=== PATIENT | male | born 1945 | race Caucasian/White ===

== ENCOUNTER 2024-06-25 13:46 | Emergency (ER) | payer MEDICARE, SELFPAY ==
--- OUTSIDE RECORDS SUMMARY | 2024-06-25 13:48 | XMS_ITS | Data Portability ---
Author Organization [place] [facility], Main Office Address [address] [place] [address] Care Team Providers Care Pressroom Foreman Name Role Phone JENNY CHAN Primary Care Provider JENNY CHAN Referring Provider [phone] Assessment Encounter Date Assessment Date Assessment LastModified by Organization Details LastModified Time 10/13/2022 10/13/2022 Had to leave before seen [email or web address] Not available 11/22/2022 17:32:43 11/19/2022 11/19/2022 Refuses any screenings or immunizations at this time will continue with current therapy follow-up 6 months [email or web address] Not available 11/19/2022 22:18:07 Plan of Treatment Reminders Order Date Submit Date Provider Last Modified By Organization Details Last Modified Time Details Appointments None record ed. Lab None record ed. Referral None record ed. Procedures None record ed. Surgeries None record ed. Imaging None record ed. Medication Orders None record ed. Patient TargetsNo targets recorded. Patient Instructions Encounter Date Encounter Id Patient Instructions Last Modified By Organization Details Last Modified Time 11/19/2022 [id number] dementia rating scale-2* [email or web address] Not available 11/19/2022 22:18:33 depression screening* [email or web address] Not available 11/19/2022 22:18:33 alcohol misuse* [email or web address] Not available 11/19/2022 22:18:32 multi-dimensiona l health assessment questionnaire* Not available 11/19/2022 22:18:33 Personalized [facility] lt Plan and Screening Recommendations Advance Directives - Do you have one? No Advance Directives - Do we have your advance directive on file in your health record? Primary Prevention/Interven tion (prevents or decreases the chance of common diseases from occurring) Smoking Risk: Non Smoker Alcohol Misuse Screening: Negative Weight: Appropriate Physical activity: Appropriate physical activity Nutrition: Good Fall Risk (screened today): Low Vaccines Pneumococcal: Ordered Recommended today Recommended today, but you have declined Influenza: Chronic Disease Risks Stroke: Low Risk I have no recommendations Heart Attack: Low risk I have no recommendations Clogging of the Arteries: Low risk I have no recommendations Diabetes: Low Risk I have no recommendations Secondary Prevention/Interven tion (detects treatable diseases before they may cause symptoms, disability, or ) Prostate Cancer Screening: No digital rectal exam screening necessary Colon Cancer Screening: Colonoscopy In: Ordered Recomme nded Recommended today, but you have declined Date Screening Last Performed: Patient had a positive Cologuard on 05/12/18 but refused follow-up. Eye Disease Screening: Ordered Recommended today Dementia Risk: Low I have no recommendations Depression Screening: Negative Not available 11/19/2022 14:37:43 Reason for Referral None Reported. Results Created Date Observation Date Name Description Value Unit Range Abnormal Flag Note LastModifiedBy Organization Detail LastModifiedTime 11/27/1911/26/2020 CBC/C OMPLE TE BLD COUNT W/DIF F mean RBC HGB concentratio n 32.9 g/dL 31.0-3 6.0 Not Available [facility] (Lab) [address] [place], [address], 11/26/2020 19:56:11 11/27/19 21 11/26/2020 CBC/C OMPLE TE BLD COUNT W/DIF F white blood cells 8.4 x10'3 /uL 4.2-10 .8 Not Available [facility] (Lab) [address] [place], [address], 11/26/2020 19:56:11 11/27/19 21 11/26/2020 CBC/C OMPLE TE BLD COUNT W/DIF F red blood cells 4.63 x10'6 /uL 4.10-5 .80 Not Available [facility] (Lab) [address] [place], [address], 11/26/2020 19:56:11 11/27/19 21 11/26/2020 CBC/C OMPLE TE BLD COUNT W/DIF F hemoglobin 14.1 g/dL 13.2-1 7.0 Not Available [facility] (Lab) [address] [facility] [place], [address], 11/26/2020 19:56:11 11/27/19 21 11/26/2020 CBC/C OMPLE TE BLD COUNT W/DIF F hematocrit 42.8 % 39.3-5 0.0 Not Available [facility] (Lab) [address] [place], [address], 11/26/2020 19:56:11 11/27/19 21 11/26/2020 CBC/C OMPLE TE BLD COUNT W/DIF F mean red cell volume 92.4 fL 80.0-9 7.0 Not Available [facility] (Lab) [address] [place], [address], 11/26/2020 19:56:11 11/27/19 21 11/26/2020 CBC/C OMPLE TE BLD COUNT W/DIF F mean red cell hemoglobin 30.5 pg 27.0-3 3.0 Not Available [facility] (Lab) [address] [place], [address], 11/26/2020 19:56:11 11/27/1911/26/2020 CBC/C OMPLE TE BLD COUNT W/DIF F red cell distribution width 13.7 % 11.8-1 5.5 Not Available [facility] (Lab) [address] [place], [address], 11/26/2020 19:56:11 11/27/1911/26/2020 CBC/C OMPLE TE BLD COUNT W/DIF F platelets 224 x10'3 /uL 150-40 0 Not Available [facility] (Lab) [address] [place], [address], 11/26/2020 19:56:11 11/27/19 21 11/26/2020 CBC/C OMPLE TE BLD COUNT W/DIF F mean platelet volume 10.9 fL 9.0-12 .4 Not Available [facility] (Lab) [address] [place], [address], 11/26/2020 19:56:11 11/27/1911/26/2020 CBC/C OMPLE TE BLD COUNT W/DIF F neutrophils 61.1 % 39.0-7 2.0 Not Available [facility] (Lab) [address] [place], [address], 11/26/2020 19:56:11 11/27/1911/26/2020 CBC/C OMPLE TE BLD COUNT W/DIF F lymphocytes 26.8 % 16.0-4 7.0 Not Available [facility] (Lab) [address] [place], [address], 11/26/2020 19:56:11 11/27/1911/26/2020 CBC/C OMPLE TE BLD COUNT W/DIF F monocytes 8.4 % 5.0-12 .0 Not Available [facility] (Lab) [address] [place], [address], 11/26/2020 19:56:11 11/27/1911/26/2020 CBC/C OMPLE TE BLD COUNT W/DIF F eosinophils 2.7 % 1.0-7. 0 Not Available [facility] (Lab) [address] [place], [address], 11/26/2020 19:56:11 11/27/1911/26/2020 CBC/C OMPLE TE BLD COUNT W/DIF F basophils 0.8 % 0.0-2. 0 Not Available [facility] (Lab) [address] [place], [address], 11/26/2020 19:56:11 11/27/1911/26/2020 CBC/C OMPLE TE BLD COUNT W/DIF F immature granulocytes 0.2 % 0.00-0 .50 Not Available [facility] (Lab) [address] [place], [address], 11/26/2020 19:56:11 11/27/19 21 11/26/2020 CBC/C OMPLE TE BLD COUNT W/DIF F neutrophils, absolute count 5.14 x10'3 /uL 1.5-8. 0 Not Available [facility] (Lab) [address] [place], [address], 11/26/2020 19:56:11 11/27/1911/26/2020 CBC/C OMPLE TE BLD COUNT W/DIF F lymphocytes, absolute count 2.26 x10'3 /uL 1.07-3 .43 Not Available [facility] (Lab) [address] [place], [address], 11/26/2020 19:56:11 11/27/19 21 11/26/2020 CBC/C OMPLE TE BLD COUNT W/DIF F monocytes, absolute count 0.71 x10'3 /uL 0.29-0 .99 Not Available [facility] (Lab) [address] [place], [address], 11/26/2020 19:56:11 11/27/1911/26/2020 CBC/C OMPLE TE BLD COUNT W/DIF F eosinophils, absolute count 0.23 x10'3 /uL 0.02-0 .53 Not Available [facility] (Lab) [address] [place], [address], 11/26/2020 19:56:11 11/27/1911/26/2020 CBC/C OMPLE TE BLD COUNT W/DIF F basophils, absolute count 0.07 x10'3 /uL 0.01-0 .08 Not Available [facility] (Lab) [address] [place], [address], 11/26/2020 19:56:11 11/27/19 21 11/26/2020 CBC/C OMPLE TE BLD COUNT W/DIF F immature granulocytes ,absolute 0.02 x10'3 /uL 0.00-0 .05 Not Available [facility] (Lab) [address] [place], [address], 11/26/2020 19:56:11 11/27/19 21 11/26/2020 CBC/C OMPLE TE BLD COUNT W/DIF F nucleated red blood cells 0.0 % -0 Not Available [facility] (Lab) [address] [place], [address], 11/26/2020 19:56:11 11/27/19 21 11/26/2020 CBC/C OMPLE TE BLD COUNT W/DIF F NRBC# 0.00 x10'3 /uL Not Available [facility] (Lab) [address] [place], [address], 11/26/2020 19:56:11 11/27/19 21 11/26/2020 COMPR EHENS RUSTY METAB OLIC PANEL carbon dioxide 25 mmol/ L 22-30 Not Available [facility] (Lab) [address] [place], [address], 11/26/2020 20:30:21 11/27/19 21 11/26/2020 COMPR EHENS RUSTY METAB OLIC PANEL sodium 140 mmol/ L 137-14 5 Not Available [facility] (Lab) [address] [place], [address], 11/26/2020 20:30:21 11/27/19 21 11/26/2020 COMPR EHENS RUSTY METAB OLIC PANEL potassium 4.3 mmol/ L 3.5-5. 1 Not Available [facility] (Lab) [address] [place], [address], 11/26/2020 20:30:21 11/27/19 21 11/26/2020 COMPR EHENS RUSTY METAB OLIC PANEL chloride 105 mmol/ L 98-107 Not Available [facility] (Lab) [address] [place], [address], 11/26/2020 20:30:21 11/27/19 21 11/26/2020 COMPR EHENS RUSTY METAB OLIC PANEL agap 14.3 mmol/ L 14-22 Not Available [facility] (Lab) [address] [place], [address], 11/26/2020 20:30:21 11/27/19 21 11/26/2020 COMPR EHENS RUSTY METAB OLIC PANEL glucose 88 mg/dL 70-99 Not Available [facility] (Lab) [address] [place], [address], 11/26/2020 20:30:21 11/27/19 21 11/26/2020 COMPR EHENS RUSTY METAB OLIC PANEL BUN 20 mg/dL 8-19 high Not Available [facility] (Lab) [address] [place], [address], 11/26/2020 20:30:21 11/27/19 21 11/26/2020 COMPR EHENS RUSTY METAB OLIC PANEL creatinine 1.19 mg/dL 0.66-1 .25 Not Available [facility] (Lab) [address] [place], [address], 11/26/2020 20:30:21 11/27/19 21 11/26/2020 COMPR EHENS RUSTY METAB OLIC PANEL GFR 60 Refer ence Range : [place] ge GFR Healt hy Adult : >60 mL/mi n/1.7 3 m2 Chron ic Kidne y Disea se: 15-60 mL/mi n/1.7 3 m2 Kidne y Failu re: <15/m L/min /1.73 m2 www.n iddk. nih.g ov MDRD study equat ion hasn' t been valid ated in child brad <18 yrs of age, pregn ant women , the elder ly >85 yrs of age, or in some racia l or ethni c subgr oups, suc as Hispa nics. Outsi de the valid ated lilliam eters , estim ated GFR is less accur ate requi ring clini mike judgm ent on a case by case basis . Clini mike inter preta tion for other races and ages must be made by the clini cale . Futhe rmore , any of th e limit ation s with the use of serum creat inine relat ed to nutri buck l statu s o r medic ation usage hasn' t accou nted for the MDRD Study equat ion. For perso ns < 18 yrs of age, a pedia tric GFR calcu lator can be locat ed on the [facility] websi te: https ://peter goodwin.o rg/pr ofess ional s/kdo qi/gf r_cal culat or Not Available [facility] (Lab) [address] [place], [address], 11/26/2020 20:30:21 11/27/19 21 11/26/2020 COMPR EHENS RUSTY METAB OLIC PANEL alkaline phosphatase 53 U/L 38-126 Not Available [facility] (Lab) [address] [place], [address], 11/26/2020 20:30:21 11/27/19 21 11/26/2020 COMPR EHENS RUSTY METAB OLIC PANEL alanine aminotransfe rase 17 U/L 0-50 Not Available [facility] (Lab) [address] [place], [address], 11/26/2020 20:30:21 11/27/19 21 11/26/2020 COMPR EHENS RUSTY METAB OLIC PANEL aspartate aminotransfe rase 25 U/L 15-46 Not Available [facility] (Lab) [address] [place], [address], 11/26/2020 20:30:21 11/27/19 21 11/26/2020 COMPR EHENS RUSTY METAB OLIC PANEL bilirubin, total 0.40 mg/dL 0.20-1 .30 Not Available [facility] (Lab) [address] [facility] [place], [address], 11/26/2020 20:30:21 11/27/19 21 11/26/2020 COMPR EHENS RUSTY METAB OLIC PANEL calcium 9.5 mg/dL 8.4-10 .2 Not Available [facility] (Lab) [address] [place], [address], 11/26/2020 20:30:21 11/27/19 21 11/26/2020 COMPR EHENS RUSTY METAB OLIC PANEL total protein 7.6 g/dL 6.3-8. 2 Not Available [facility] (Lab) [address] [place], [address], 11/26/2020 20:30:21 11/27/19 21 11/26/2020 COMPR EHENS RUSTY METAB OLIC PANEL albumin 4.5 g/dL 3.0-4. 4 high Not Available [facility] (Lab) [address] [place], [address], 11/26/2020 20:30:21 11/27/19 21 11/26/2020 COMPR EHENS RUSTY METAB OLIC PANEL globulin 3.1 g/dL 2.6-4. 2 Not Available [facility] (Lab) [address] [place], [address], 11/26/2020 20:30:21 11/27/19 21 11/26/2020 COMPR EHENS RUSTY METAB OLIC PANEL A/G ratio 1.5 ratio 1.0-2. 0 Not Available [facility] (Lab) [address] [place], [address], 11/26/2020 20:30:21 11/27/19 21 11/26/2020 LIPID PANEL cholesterol 185 mg/dL 140-19 9 NIH TOMMIE NSUS RECOM MENDA TION FOR JULIA STERO L: ADULT CHILD LOW RISK: <200 <170 BORDE RLINE : <200- 239 ----- HIGH RISK: >240 >200 Not Available [facility] (Lab) [address] [place], [address], 11/26/2020 20:30:05 11/27/19 21 11/26/2020 LIPID PANEL triglyceride s 112 mg/dL 0-150 NIH TOMMIE NSUS REPOR T RECOM MENDA TION FOR TRIGL YCERI SUSAN: ADULT CHILD LOW RISK: <150 ----- BODER LINE: 150-1 99 ----- HIGH RISK: >200 ----- Not Available [facility] (Lab) [address] [place], [address], 11/26/2020 20:30:05 11/27/19 21 11/26/2020 LIPID PANEL HDL cholesterol 58 mg/dL 40- Not Available [facility] (Lab) [address] [place], [address], 11/26/2020 20:30:05 11/27/19 21 11/26/2020 LIPID PANEL LDL cholesterol, calculated 105 mg/dL 0-130 NIH TOMMIE NSUS REPOR T RECOM MENDA TIONS FOR LDL: ADULT CHILD LOW RISK <130 <110 (OPTI MAL LDL) <100 ----- BORDE RLINE : 130-1 59 ----- HIGH RISK: >160 >130 A TRIGL YCERI DE RESUL T >400 INVAL IDATE S THE CALCU LATIO N FOR LDL FRACT IONAT ION - THE LDL RESUL T WILL NOT BE REPOR RADHA. Not Available [facility] (Lab) [address] [place], [address], 11/26/2020 20:30:05 Result Notes None recorded. 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 Procedures Surgical History Date Name Laterality Status Provider Name and Address Organization Details Recorded Time 3 Medicare Wellness CPT Code, subsequent completed Nichelle Cazares RN [facility] [employer] [facility] 11/19/2022 14:28:22 9 screening for malignant neoplasm of colon completed Not Available [facility] 07/01/2022 06:11:09 Hand completed Not Available [facility] 05/2022 06:11:09 discectomy of spine completed Not Available [facility] 07/01/2022 06:11:09 Imaging Results None recorded. Procedure Notes None recorded. Medical Equipment None Reported. Allergies No known drug allergies Medications Name Sig Start Date Stop Date Status Note LastModified by Organization Details LastModified Time lisinopril 10 mg tablet TAKE 1 TABLET BY MOUTH EVERY DAY active Not Available Not Available No t Available Fish Oil active Not Available Not Available Not Avai lable Vitamin D 5,000 unit tablet Take 1 tablet every day by oral route. active Not Available Not Available Not Avai lable Vitals Date Recorded Body mass index (BMI) Body height Pain severity - 0-10 verbal numeric rating [Score] - Reported Heart rate Body temperature Body weight Systolic blood pressure Diastolic blood pressure Provider Name and Address Organization Details Last Updated DateTime 1 26.3 kg/m2 175.26 cm 3 60 /min 98 [degF] 64826.4 4 g 122 mm[Hg] 78 mm[Hg] Not Available [facility] 3 06:13:14 Date Recorded Body mass index (BMI) Body height Heart rate Body temperature Body weight Systolic blood pressure Diastolic blood pressure Provider Name and Address Organization Details Last Updated DateTime 2 27 kg/m2 175.26 cm 66 /min 97.7 [degF] 59803.4 g 134 mm[Hg] 80 mm[Hg] Not Available [facility] 3 06:13:14 Date Recorded Body mass index (BMI) Body height Heart rate Body temperature Body weight Systolic blood pressure Diastolic blood pressure Provider Name and Address Organization Details Last Updated DateTime 2 28.1 kg/m2 175.26 cm 86 /min 98.6 [degF] 51073.5 5 g 144 mm[Hg] 84 mm[Hg] Not Available [facility] 3 06:13:14 Date Recorded Body height Body mass index (BMI) Body weight Body temperature Heart rate Systolic blood pressure Diastolic blood pressure Provider Name and Address Organization Details Last Updated DateTime 3 175.26 cm 27.8 kg/m2 13855.3 7 g 97.4 [degF] 63 /min 138 mm[Hg] 80 mm[Hg] HANK Lugo [place] [facility] 3 12:17:25 Date Recorded Body height Body mass index (BMI) Body weight Body temperature Heart rate Oxygen saturation Oxygen saturation in Arterial blood by Pulse oximetry Systolic blood pressure Diastolic blood pressure Provider Name and Address Organization Details Last Updated DateTime 3 175.26 cm 27 kg/m2 99714.4 g 98 [degF] 68 /min 98 % 98 % 132 mm[Hg] 82 mm[Hg] Judi Siegel RN [facility] 3 14:10:14 Date Recorded Pain severity - 0-10 verbal numeric rating [Score] - Reported Provider Name and Address Organization Details Last Updated DateTime 11/19/2022 0 Nichelle Cazares RN [facility] 11/19/2022 14:28:57 Date Recorded Body height Body mass index (BMI) Body weight Body temperature Heart rate Systolic blood pressure Diastolic blood pressure Provider Name and Address Organization Details Last Updated DateTime 3 175.26 cm 26.6 kg/m2 53994.6 3 g 98.5 [degF] 70 /min 116 mm[Hg] 70 mm[Hg] HANK Lugo [place] [facility] 3 14:49:11 Social History Question Answer Notes LastModified by Organization Details LastModified Time Tobacco Smoking Status Former Smoker Not Available [facility] 07/01/2022 06:09:51 Do You Have An Advance Directive? No MIGRATION.085 [id number] Information not available 07/01/2022 What Is Your Level Of Alcohol Consumption? None MIGRATION.851 [id number] Information not available 07/01/2022 Are You Blind Or Do You Have Difficulty Seeing? No MIGRATION.506 [id number] Information not available 07/01/2022 What Is Your Level Of Caffeine Consumption? Moderate MIGRATION.846 [id number] Information not available 07/01/2022 How Much Tobacco Do You Chew? 2-4/day MIGRATION.532 [id number] Information not available 07/01/2022 In The 14 Days Before Symptom Onset, Have You Had Close Contact With A Laboratory-conf irmed COVID-19 While That Case Was Ill? No MIGRATION.849 [id number] Information not available 07/01/2022 In The 14 Days Before Symptom Onset, Have You Had Close Contact With A Person Who Is Under Investigation For COVID-19 While That Person Was Ill? No MIGRATION.927 [id number] Information not available 07/01/2022 Are You Deaf Or Do You Have Serious Difficulty Hearing? No MIGRATION.293 [id number] Information not available 07/01/2022 What Type Of Diet Are You Following? REGULAR MIGRATION.783 [id number] Information not available 07/01/2022 Which Illicit Or Recreational Drugs Have You Used? Cannabis Occasionally MIGRATION.278 [id number] Information not available 07/01/2022 Do You Or Have You Ever Used E-cigarettes Or Vape? Never Used Electronic Cigarettes MIGRATION.570 [id number] Information not available 07/01/2022 What Is The Highest Grade Or Level Of School You Have Completed Or The Highest Degree You Have Received? [id number] MIGRATION.895 [id number] Information not available 07/01/2022 Have There Been Any Changes To Your Family Or Social Situation? No MIGRATION.492 [id number] Information not available 07/01/2022 What Is The Fluoride Status Of Your Home? Unknown MIGRATION.456 8886330 Information not available 07/01/2022 When Did You Quit Smoking? 16+yearssincelastc igarette Quit In 1973 MIGRATION.155 [id number] Information not available 07/01/2022 Are There Any Guns Present In Your Home? Yes MIGRATION.468 [id number] Information not available 07/01/2022 Do You Use Insect Repellent Routinely? No MIGRATION.762 [id number] Information not available 07/01/2022 Where Do You Live? SingleLevelHouse With Basement Information not available 11/19/2022 Presence Of Domestic Violence No Information not available 11/19/2022 Guns Present In The Home? Yes Information not available 11/19/2022 Are You Able To Care For Yourself? Yes Information not available 11/19/2022 Are You Blind Or Do Yo Have Difficulty Seeing? No Information not available 11/19/2022 Are You Deaf Or Do You Have Serious Difficulty Hearing? No Information not available 11/19/2022 General Stress Level? Low Information not available 11/19/2022 Live Alone Of With Others? With Others Information not available 11/19/2022 Do You Have A Medical Power Of Third Rigger? No MIGRATION.850 [id number] Information not available 07/01/2022 What Was The Date Of Your Most Recent Tobacco Screening? 03/16/2023 [email or web address] Information not available 03/16/2023 Do You Have Any Pets? Yes MIGRATION.663 [id number] Information not available 07/01/2022 What Is Your Relationship Status? MIGRATION.071 [id number] Information not available 07/01/2022 Do You Use Your Seat Belt Or Car Seat Routinely? Yes MIGRATION.992 [id number] Information not available 07/01/2022 Do You Have Smoke And Carbon Monoxide Detectors In Your Home? Yes MIGRATION.360 [id number] Information not available 07/01/2022 At What Age Did You Start Smoking Tobacco? 9 MIGRATION.985 [id number] Information not available 07/01/2022 Are You Passively Exposed To Smoke? No MIGRATION.140 1616237 Information not available 07/01/2022 Do You Or Have You Ever Used Smokeless Tobacco? Currently Chews Tobacco Chews During Fishing Season MIGRATION.184 [id number] Information not available 07/01/2022 Are There Any Smokers In Your House? No MIGRATION.524 [id number] Information not available 07/01/2022 What Types Of Sporting Activities Do You Participate In? Hunting, Fishing MIGRATION.041 [id number] Information not available 07/01/2022 Do You Feel Stressed (tense, Restless, Nervous, Or Anxious, Or Unable To Sleep At Night)? [id number] MIGRATION.400 0016005 Information not available 07/01/2022 Do You Use Any Illicit Or Recreational Drugs? Yes MIGRATION.336 [id number] Information not available 07/01/2022 Do You Use Sunscreen Routinely? No Information not available 11/19/2022 Has Tobacco Cessation Counseling Been Provided? No MIGRATION.905 [id number] Information not available 07/01/2022 Have You Recently Traveled Abroad? No MIGRATION.384 [id number] Information not available 07/01/2022 Have You Used IV Drugs? No MIGRATION.712 [id number] Information not available 07/01/2022 Do You Have Any Dietary Restrictions? No MIGRATION.932 [id number] Information not available 07/01/2022 Do You Or Have You Ever Used Any Other Forms Of Tobacco Or Nicotine? Yes MIGRATION.933 [id number] Information not available 07/01/2022 Sex: Male Functional Status Question Answer Note LastModified by [employer] ion Details LastModified Time Do you have difficulty walking or climbing stairs? Yes MIGRATION.[id number] Information not available 07/01/2022 Do you have transportation difficulties? No MIGRATION.074460 [id number] Information not available 07/01/2022 Are you able to walk? YESASSIST uses cane MIGRATION.[id number] Information not available 07/01/2022 Do you have difficulty doing errands alone? No MIGRATION.882360 4729 Information not available 07/01/2022 Are you able to care for yourself? Yes MIGRATION.198997 5743 Information not available 07/01/2022 Do you have difficulty dressing or bathing? No MIGRATION.021303 6215 Information not available 07/01/2022 What is your exercise level? Moderate doing things around the house MIGRATION.419506 6137 Information not available 07/01/2022 Mental Status Question Answer Note LastModified by Organizat ion Details LastModified Time Do you have difficulty concentrating, remembering or making decisions? No MIGRATION.[id number] 6 Information not available 07/01/2022 Family History Relationship Description Onset Age of this Age Resolved Age Notes LastModified by Organization Details LastModified Time Father Malignant tumor of lung deceas ed MIGRATION.079 [id number] Not available 07/01/2022 06:11:11 Mother Arthritis deceas ed MIGRATION.798 [id number] Not available 07/01/2022 06:11:11 Medical History Condition Response NERVE DISEASE N BLINDNESS N RHEUMATIC FEVER N KIDNEY STONES N BLADDER PROBLEMS N MRSA N OTHER # 1 N POLIO N LUNG DISEASE/DISORDER N HISTORY OF DRUG ABUSE N RADIATION / CHEMOTHERAPY N COPD N Other # 2 N BLOOD DISEASES N EAR OR HEARING PROBLEMS N MUMPS N SHINGLES N BOWEL PROBLEMS N DEPRESSION (INCLUDING POST ) N STROKE/TIA N ULCERS N BENIGN PROSTATIC HYPERPLASIA N MEASLES N HYPOTENSION N MYOCARDIAL INFARCTION N OBESITY N GERD/NAUSEA N ANEURYSM N URINARY/BLADDER/KIDNEY PROBLEMS N CORONARY ARTERY DISEASE (CAD) N ADDICTION CONCERNS N Impotence N ENDOMETRIOSIS N USE OF BLOOD THINNERS N SKIN PROBLEMS N GASTROINTESTINAL DISORDER N PERIPHERAL VASCULAR DISEASE N MUSCLE,JOINT OR BONE PROBLEMS N GASTROINTESTINAL BLEEDING N BLOOD CLOTS N ASTHMA N CATARACTS N ERECTILE DYSFUNCTION N VARICOSITIES N GI PROBLEMS N Low Testosterone N INFERTILITY N AIDS/HIV N CHEMOTHERAPY / RADIATION N LIVER DISEASE N MALE HYPOGONADISM N HYPERTENSION Y Deficiency N TOURETTE'S N ANXIETY DISORDER N BLOOD TRANSFUSION N ANEMIA/BLOOD DISORDER N CHRONIC EAR INFECTIONS N BRONCHITIS N TUBERCULOSIS N GLAUCOMA N FOOT PROBLEM N DIVERTICULITIS N SLEEP APNEA N CHICKENPOX N INFECTIOUS DISEASE N PROSTATE N HEART ARRHYTHMIA N INSOMNIA N HIGH CHOLESTEROL / HYPERLIPIDEMIA N EYE PROBLEMS N HYPERTHYROIDISM N EDEMA N CHRONIC PAIN SYNDROME N HYPOTHYROIDISM N CONSTIPATION N CAROTID BLOCKAGE N BACK / NECK PROBLEMS Y HAVE YOU BEEN HOSPITALIZED OR SEEN IN [facility] ER IN THE PAST YEAR ? N ATHEROSCLEROSIS N BREAST PROBLEMS N DIALYSIS N ECZEMA N OSTEOPOROSIS N ARTHRITIS Y APPENDICITIS N DIABETES, TYPE N BAD TEETH N ENT N HEARTBURN / REFLUX N AUTISM SPECTRUM DISORDER (ASD) N HEPATITIS / LIVER DISEASE N GOUT N SLEEP DISORDER N ALZHEIMER'S DISEASE N Brain Problems N DEMENTIA N HERPES N SEIZURES/EPILEPSY N HEADACHES/MIGRAINES N VASCULAR DISEASE N PACEMAKER N Blood Disorder N DIZZINESS N HEART DISEASE/HEART PROBLEMS N KIDNEY DISEASE N MULTIPLE SCLEROSIS N CANCER: SPECIFY N CARDIAC ARRHYTHMIA N ATRIAL FIBRILLATION N Gall Stones N PULMONARY EMBOLISM N AUTOIMMUNE DISEASE N Immunizations Vaccine Type Date Status Note Provider Nam e and Address Organization Details Recorded Time COVID-19 vaccine, vector-nr, rS-Ad26, PF, 0.5 mL 07/09/2020 completed Not Available [facility] 06:21:47 Past Encounters Encounter ID Performer Location Encounter Start Date Encounter Closed Date Diagnosis/Indication Diagnosis SNOMED-CT Code Diagnosis ICD10 Code Diagnosis Note [id number] [facility] Internal [facility] [place] [address] [facility] [address] , [place] [address] 11/26/2020 00:00:00 11/26/2020 22:41:48 [id number] [facility] [place] [address] [facility] [address] , [place] [address] 05/20/2021 00:00:00 05/20/2021 22:15:31 [id number] [facility] Internal [facility] [place] [address] [facility] [address] , [place] [address] 03/31/2022 00:00:00 03/31/2022 14:50:50 [id number] Jenny Chan MD [facility] Internal [facility] [place] [address] [facility] [address] , [place] [address] 10/13/2022 11:36:54 11/22/2022 17:32:45 [id number] Jenny Chan MD [facility] Internal [facility] [place] [address] [place] [address] y , [place] [address] 11/19/2022 14:02:20 11/19/2022 14:46:01 Adult health examination 229247849 Z00.00 Screening for disorder 016719880 Z13.9 Essential hypertension 46015097 I10 Osteoarthritis 011654526 M19.90 Health Concerns Section Related Observation LastModified by Organization Detai ls LastModified Time None Recorded Concern Status LastModified by Organization Details LastModified Time None Recorded Advance Directives Directive N: Payers Encounter Date Sequence Insurance Name Policy Number Policy Osuna Covered Member ID Osuna Member ID Guarantor Name 10/13/2022 1 [facility] (MEDICARE REPLACEMENT/A DVANTAGE - HMO) [id number] Carlos Alex [id number] Carlos Alex 11/19/2022 1 [facility] (MEDICARE REPLACEMENT/A DVANTAGE - HMO) [id number] Carlos Alex [id number] Carlos Alex Notes Date Note Type Note Provider Name and Address Organization Details Recorded Time 11/19/2022 text/html hypertension no chest pain or dizziness osteoarthritis stable back bothers him from time to time as does other joints Medicare annual wellness completed Jenny Chan MD [address] [facility] [facility] [address], [place], [address], [facility] 11/19/2022 22:18:36
--- OUTSIDE RECORDS SUMMARY | 2024-06-25 13:48 | XMS_ITS | CONTINUITY OF CARE DOCUMENT ---
Author Name timi capellan Address Unknown Organization [facility] Address [address] [address] [place] [address] Phone [phone] Care Team Providers Care Slicing Machine Tender Name Role Phone ERICA NORMAN, ERICH Unavailable FRANCOIS RAYA MD Unavailable [phone] INSURANCE PROVIDERS Payer name Policy type / Coverage type Karoline red libertarian ID [employer] Medicaid 1 [id number] [place] MEDICARE Medicare [id number]
[2024-06-25 14:13] VITALS: BP 151/85; PULSE 78; RESP 19; TEMP 36.7; O2SAT 100
--- NOTE | 2024-06-25 15:50 | ED_ITS ---
HPI - Nausea/Vomiting/Diarrhea General Chief complaint: Nausea/Vomiting/Diarrhea Stated complaint: sick for 4 days Time Seen by Provider: 06/25/24 15:50 Focused HPI: This is a 78 year old male that presents to the ER for vomiting, diarrhea. Reports he has been sick for 5 days. Reports today his stool looked black. He does not take blood thinners. Denies fevers. GENERAL: Well-appearing, well-nourished, and in no acute distress. HEAD: Normocephalic, atraumatic. CHEST: Clear to auscultation. ?No respiratory distress. HEART: Regular rate and rhythm.? NEURO: ?Alert and oriented x3. Patient screened in triage and initial orders placed.? ?Additional care and disposition to be based upon?diagnostic testing and treatment. Related Data Allergies Allergy/AdvReac Type Severity Reaction Status Date / Time No Known Allergies Allergy Unknown Unverified 05/21/17 09:16 Course Vital Signs Vital signs: Vital Signs Temperature 98.0 F 06/25/24 14:13 Pulse Rate 78 06/25/24 14:13 Respiratory Rate 19 06/25/24 14:13 Blood Pressure 151/85 H 06/25/24 14:13 Pulse Oximetry 100 06/25/24 14:13 Oxygen Delivery Room Air 06/25/24 14:13 Temperature 98.0 F 06/25/24 14:13 Pulse Rate 78 06/25/24 14:13 Respiratory Rate 19 06/25/24 14:13 Blood Pressure 151/85 H 06/25/24 14:13 Pulse Oximetry 100 06/25/24 14:13 Oxygen Delivery Room Air 06/25/24 14:13 MDM - Nausea/Vomiting/Diarrhea MDM Narrative Medical decision making narrative: Patient left after medical screening exam and before any further evaluation or management Discharge Plan Discharge Clinical Impression: Gastroenteritis, Dark stools Patient Disposition: Elopement After Seen by Prov Condition: Guarded Prognosis Patient Language: Pashto Follow-up/Referrals: Aniyah,Darin Duckworth MD [Primary Care Provider] -
--- NOTE | 2024-06-25 17:33 | PC.NURSE ---
Pt daughter to intake, states pt is unwilling to wait any longer and plans to leave the ED. Pt ambulated to intake desk and states Thanks for nothing. This RN apologized for the wait w/ no response from pt. NAD noted as pt exited ED w/out assist.
--- OUTSIDE RECORDS SUMMARY | 2024-06-25 17:53 | XMS_ITS | CONTINUITY OF CARE DOCUMENT ---
Author Name timi capellan Address Unknown Organization [facility] Address [address] [address] [facility] [place] [address] Phone [phone] Care Team Providers Care Dealership General Manager Name Role Phone ERICA NORMAN, ERICH Unavailable FRANCOIS RAYA MD Unavailable [phone] INSURANCE PROVIDERS Payer name Policy type / Coverage type Karoline red constitution party ID [employer] Medicaid 1 [id number] [place] [employer] Medicare [id number]
== END 2024-06-25 17:55 | disposition left against medical advice (07) ==
LOC: ANHED 17:51
PROVIDERS: Emergency Provider Physician Assistant; PCP Internal Medicine
DX: K52.9 Noninfective gastroenteritis and colitis, unspecified (principal)
CPT/HCPCS: 99281

== ENCOUNTER 2025-02-05 13:56 | Outpatient (CLI) | payer MEDICARE, SELFPAY ==
[2025-02-05 14:28] LABS: Hematocrit 43.6 % (42.0-52.0); Hemoglobin 14.4 g/dL (14.0-18.0); Immature Granulocyte Percent A 0.4 % (0-0.5); Lymphocytes Absolute Auto 2.26 K/mm3 (0.9-3.2); Mean Corpuscular HGB Conc 33.0 g/dl (32-36); Mean Corpuscular Hemoglobin 30.5 pg (26-34); Mean Corpuscular Volume 92.4 fl (80-100); Nucleated Red Blood Cells Absolute Auto 0.000 K/mm3 (0.0-0.012); Nucleated Red Blood Cells Perc 0.0 % (0.0-0.2); Platelet Count Result 196 k/mm3 (150-375); Red Blood Count 4.72 M/mm3 (4.6-6.20); White Blood Count 8.2 K/mm3 (4.5-10.0)
[2025-02-05 14:50] LABS: Alanine Aminotransferase 23 U/L (6-50); Albumin Level 4.3 g/dL (3.5-5.1); Alkaline Phosphatase 53 U/L (38-126); Anion Gap 7 mmol/L (4-12); Aspartate Amino Transferase 31 U/L (17-59); Bilirubin,Total 0.6 mg/dL (0.2-1.3); Blood Urea Nitrogen 18 mg/dL (9-20); Calcium 8.9 mg/dL (8.4-10.2); Carbon Dioxide 26 mmol/L (22-30); Chloride 103 mmol/L (98-107); Cholesterol 200 mg/dL (0-200); Estimated Glomerular Filt Rate > 60; Glucose 85 mg/dL (65-110); HDL Direct 43 mg/dL; Potassium 3.9 mmol/L (3.4-5.0); Sodium 136 mmol/L (137-145); Total Protein 8.1 g/dL (6.3-8.2); Triglycerides 76 mg/dL (<150)
[2025-02-05 15:25] LABS: Prostate Specific Antigen 2.8 ng/mL (< OR = 4.0)
== END 2025-02-05 13:57 | disposition home or self-care (01) ==
PROVIDERS: PCP Internal Medicine; Visit Provider Internal Medicine
DX: Z12.5 Encounter for screening for malignant neoplasm of prostate (principal); I10 Essential (primary) hypertension
CPT/HCPCS: 36415; 80053; 80061; 84153; 85025